=== PATIENT | female | born 1960 | race Caucasian/White ===

== ENCOUNTER 2016-12-19 01:04 | Emergency (ER) | payer OTHER ==
[~2016-12-19] VITALS: Ht 177.8 cm; Wt 60.4 kg
[2016-12-19 02:18] LABS: INFLUENZA A VIRAL ANTIGEN NEGATIVE; INFLUENZA B VIRAL ANTIGEN NEGATIVE
[2016-12-19] MEDS ORDERED: ROBITUSSIN AC,T10 ML PO (03:23)
[2016-12-19] MEDS ORDERED: ZITHROMAX Z-PA250 MG PO (03:23)
[2016-12-19] MEDS ORDERED: VENTOLIN HFA18 GM IH (03:23)
[2016-12-19] MEDS ORDERED: MEDROL DOSEPAK4 MG PO (03:24)
[2016-12-19 04:09] VITALS: BP 127/69
== END 2016-12-19 04:10 | disposition home or self-care (01) ==
LOC: EME 01:04
DX: J18.9 Pneumonia, unspecified organism (principal); J98.01 Acute bronchospasm
CPT/HCPCS: 71020; 87502; 94640; 99281; 99284; J0696